=== PATIENT | female | born 1945 | race Caucasian/White ===

== ENCOUNTER → 2017-02-28 | Outpatient (CLI) | payer MEDICARE, OTHER | END | disposition home or self-care (01) | LOC: SURG 13:49 | PROVIDERS: ATTEND Anesthesiology Pain Medicine | DX: M25.551 Pain in right hip (principal); M25.552 Pain in left hip; I25.10 Atherosclerotic heart disease of native coronary artery without angina pectoris | CPT/HCPCS: 99204 ==

== ENCOUNTER 2020-02-23 09:26 | Emergency (ER) | payer MEDICARE, BC ==
[~2020-02-23] VITALS: Ht 162.6 cm; Wt 97.2 kg
--- NOTE | 2020-02-23 10:02 | PHYS DOC ---
Past History Past Medical History: CVA, Dementia Past Medical History Please defer to nursing documentation Past Surgical History Please defer to nursing documentation Adult General Chief Complaint Chief Complaint: HIP PAIN [facility] HPI Patient is a 74-year-old female who presents for bilateral hip pain. This is an acute on chronic problem. Patient arrives via EMS and limited history initially obtained via EMS, history was subsequently provided by who lives with patient. Patient has dementia and is at baseline status. Has chronic history of bilateral hip problems and has had MRIs performed on both, she deferred surgery approximately 5 years ago for continued medical management given risk vs benefits conversation. Patient deals with this hip pain daily but this has acutely worsened in the last 12 hours without any known inciting event or fall per her . Patient took unknown dose of Tylenol at 1 AM. She is typically able to ambulate and perform basic activities of daily living at home despite chronic right-sided deficits from previous CVA in 2011 but when she could not get up to sit at end of bed and start her day this morning around 8 AM, got concerned and called EMS for transport to our facility for evaluation. On arrival, patient complains of bilateral hip pain. Reports right side being more significant than left. Admits mild radiation into right flank. No fever, no recent COVID-19 contact, no chest pain, no shortness of breath, abdominal pain, nausea, vomit, diarrhea. She is unknown if she has had any changes in urination Review of Systems Review of Systems Fourteen body systems of review of systems have been reviewed. See HPI for pertinent positives and negative responses, other arredondo all other systems are negative, non-pertinent or non-contributory Allergies Allergies Allergies Coded Allergies Type Severity Reaction Last Updated Verified No Known Drug Allergies 02/23/20 No Physical Exam Physical Exam Constitutional: Well developed, well nourished, no acute distress, non-toxic appearance. At baseline mentation per HENT: Normocephalic, atraumatic, bilateral external ears normal, oropharynx moist, no oral exudates, nose normal. Eyes: PERRLA, EOMI, conjunctiva normal, no discharge. Neck: Normal range of motion, no tenderness, supple, no stridor. Cardiovascular: Heart rate regular, sinus rhythm, no murmurs rubs or gallops Lungs & Thorax: Bilateral breath sounds clear to auscultation Abdomen: Bowel sounds normal, distended, diffusely tender with guarding present, no rebound, no masses, no pulsatile masses. Positive heel strike. Pelvic girdle stable to palpation, patient has focal tenderness to palpation of right greater trochanter head Skin: Warm, dry, no erythema, no rash. Back: No tenderness, no CVA tenderness. Extremities: No tenderness, no cyanosis, no clubbing, ROM intact, no edema. Neurologic: Alert and oriented X 3, motor & sensory function at baseline for patient with residual right upper and lower extremity deficits secondary to prior CVA. Cranial nerves II through XII intact Psychologic: Affect normal, judgement normal, mood normal. Current Patient Data Vital Signs Vital Signs Date Time Temp Pulse Resp B/P (MAP) Pulse Ox O2 Delivery O2 Flow Rate FiO2 02/23/20 09:34 97.7 58 18 103/75 (84) 98 Room Air EKG EKG EKG ordered and interpreted by myself at 1040 hrs. as sinus rhythm at 59 bpm, unremarkable intervals, no axis deviation, no ischemic findings, no STEMI Radiology/Procedures Radiology/Procedures PROCEDURE: HIP BILATERAL WITH PELVIS HIP BILATERAL WITH PELVIS 02/23/2020 10:01 AM INDICATION: Bilateral hip pain COMPARISON: None available. TECHNIQUE: AP view the pelvis with a dedicated view of each hip are provided. FINDINGS/ IMPRESSION: 1. No acute fracture or dislocation involving the pelvic ring. Superior and inferior pubic rami are intact. Sacroiliac joints are well aligned. Sacral mickey appear intact. Iliac bones are normal in appearance. No suspicious osseous lesion is identified. Moderate to advanced lumbar spondylosis. 2. Advanced osteoarthrosis of the right hip with joint space narrowing, subcortical sclerosis and marginal osteophytosis. There is flattening of the femoral head with subcortical sclerosis which may be associated with osteonecrosis. There is either a inferior femoral osteophyte versus nondisplaced subcapital fracture (series 2, image 1). 3. There is moderate to advanced osteoarthrosis of the left hip with subcortical sclerosis, joint space narrowing and marginal osteophytosis. No acute fracture or dislocation of the left femur. Electronically signed by: Harper Dickson MD (02/23/2020 12:58 PM) [id number] PROCEDURE: CT ABD PELV W/ IV CONTRST ONLY EXAM: CT Abdomen and Pelvis with IV contrast INDICATION: Reason: RLQ pain / Spl. Instructions: / History: TECHNIQUE: Multi-detector row CT images were acquired from the lung bases through the abdomen and pelvis with the use of IV contrast. Sagittal and coronal images were acquired from the transaxial data. All CT scans performed at this facility utilize dose optimization techniques as appropriate to the exam, including the following: Automated exposure control and adjustment of the mA and/or KV according to patient size (this includes techniques or standardized protocols for targeted exams where dose is indication/reason for exam). IV CONTRAST: Administered ORAL CONTRAST: Not administered COMPARISON: None FINDINGS: LOWER CHEST: Unremarkable LIVER: Unremarkable BILIARY SYSTEM: Gallbladder is unremarkable. Bile ducts are not dilated. PANCREAS: Unremarkable SPLEEN: Unremarkable ADRENALS: Unremarkable KIDNEYS & URETERS: Unremarkable BLADDER: Moderately distended but otherwise unremarkable. REPRODUCTIVE ORGANS: Hysterectomy GASTROINTESTINAL: Rectal fecal distention to 6 cm transverse diameter is present. Otherwise the stomach, small bowel, and colon are unremarkable. The appendix is not well seen but there are no findings of acute appendicitis.. MESENTERY/PERITONEUM/RETROPERITONEUM: Unremarkable VASCULAR: Unremarkable LYMPH NODES: No adenopathy OSSEOUS & SOFT TISSUES: Bilateral hip degenerative changes. No acute or aggressive osseous lesions. IMPRESSION: Findings compatible with constipation. Otherwise no acute findings in the abdomen or pelvis on contrast enhanced CT. Electronically signed by: Dayton Mancera MD (02/23/2020 1:08 PM) [id number] Heart Score Risk Factors: Risk Factors: DM, Current or recent (<one month) smoker, HTN, HLP, family history of CAD, obesity. Risk Scores: Risk Factors: DM, Current or recent (<one month) smoker, HTN, HLP, family history of CAD, obesity. Course & Med Decision Making Course & Med Decision Making Pertinent Labs and Imaging studies reviewed. (See chart for details) Given history, exam, and workup, low suspicion for ICH, skull fx, spine fx or other acute spinal syndrome, PTX, pulmonary contusion, cardiac contusion, aortic/vertebral dissection, significant hemorrhage, extremity fracture. Discussed most likely diagnosis of constipation. Patient has known bilateral hip problems. Patient lives at home with , I discussed case with him and their son at length. They report they are able to care for patient at home independently They did report worsening mobility in the past few months without any known falls or inciting events, this is likely continued degeneration of bilateral hips. I advised them to follow-up with PCP as soon as possible after this ER visit to discuss possibilities of home health versus SNF versus assisted living etc. I educated patient, , and son on supportive care practices on how to best treat patient's constipation. She has been going daily but has had decreased p.o. fluid intake and decreased fiber. I encouraged her to increase both of these in addition to adding MiraLAX supplement daily Strict return precautions discussed with good understanding by all present, patient demonstrated baseline mobility function for myself, staff members and family present prior to discharge, all questions and concerns addressed prior to ER departure in stable condition Kimberley Disclaimer Kimberley Disclaimer This electronic medical record was generated, in whole or in part, using a voice recognition dictation system. Departure Departure: Impression: Primary Impression: Constipation Additional Impression: Chronic hip pain, bilateral Disposition: 01 DC HOME SELF CARE/HOMELESS Condition: STABLE Referrals: KING DEXTER (PCP) Patient Instructions: Constipation, Adult, Hip Pain Additional Instructions: You have been evaluated in the Emergency Department today for abdominal pain. Your evaluation was not suggestive of any emergent condition requiring medical intervention at this time. However, some abdominal problems make take more time to appear. Therefore, it is important for you to watch for any new symptoms or worsening of your current condition. As discussed, most likely diagnosis after comprehensive evaluation was constipation in the setting of chronic bilateral hip pain. I discussed potential need for admission and rehabilitation with consideration for [facility]/assisted living/home health set up I discussed with you extensively that this can also be performed by your outpatient primary care physician. Your father and son are confident in their abilities to provide care for you in the short-term until you can follow-up with your PCP in upcoming 1 to 7 days Return to the Emergency Department if you experience worsening pain, persistent fevers greater than 100.4, recurrent vomiting, blood in vomit, blood in stool, dark tarry stool, chest pain, difficulty breathing, or any other concerning symptoms. Scripts Polyethylene Glycol 3350 (MIRALAX) 119 Gm Powder 17 GM PO DAILY PRN for CONSTIPATION, #527 GM 0 Refills dissolve in water Prov: KESHAV MÁRQUEZ DO 02/23/20 Problem Qualifiers KESHAV MÁRQUEZ DO Feb 23, 2020 10:02
[2020-02-23] MEDS ORDERED: IOHEXOL 300 MG/ML 75 ML VIAL. IV ONE (10:30)
--- NOTE | 2020-02-23 10:46 | EKG ---
[address] [address] Test Date: 2020-02-23 Test Time: 10:39:28 Pat Name: PIERRE BANKS Department: Room: Gender: F Comfort Filler: ROSEANN : 1945 Requested By: KESHAV MÁRQUEZ Order Number: [id number] Reading MD: Measurements Intervals [place] Rate: 59 P: 230 [place]: 192 QRS: 57 QRSD: 72 T: 61 QT: 430 QTc: 430 Interpretive Statements SINUS RHYTHM QRS(T) CONTOUR ABNORMALITY CONSISTENT WITH ANTEROSEPTAL INFARCT PROBABLY OLD ABNORMAL ECG RI6.02 No previous ECG available for comparison
[2020-02-23 10:51] LABS: BASO % 1 % (0-3); EOS # 0.1 x10^3/uL (0.0-0.7); EOS % 2 % (0-3); HEMATOCRIT 42.8 % (36.0-47.0); HEMOGLOBIN 14.4 g/dL (12.0-15.5); LYMPH % 38 % (24-48); MEAN CORPUSCULAR HEMOGLOBIN 31 pg (25-35); MEAN CORPUSCULAR HGB CONC 34 g/dL (31-37); MEAN CORPUSCULAR VOLUME 91 fL (79-100); MONO # 0.4 x10^3/uL (0.0-1.1); MONO % 8 % (0-9); NEUT # 2.7 x10^3uL (1.8-7.7); NEUT % 51 % (31-73); PLATELET COUNT 203 x10^3/uL (140-400); RED BLOOD COUNT 4.68 x10^6/uL (3.50-5.40); RED CELL DISTRIBUTION WIDTH 13.3 % (11.5-14.5); WHITE BLOOD COUNT 5.2 x10^3/uL (4.0-11.0)
[2020-02-23 10:59] LABS: CALCIUM 9.1 mg/dL (8.5-10.1); CREATININE 0.9 mg/dL (0.6-1.0)
[2020-02-23 11:00] VITALS: BP 153/97
[2020-02-23 11:05] LABS: ALBUMIN 3.5 g/dL (3.4-5.0); ALBUMIN/GLOBULIN RATIO 1.2 (1.0-1.7); TOTAL BILIRUBIN 0.5 mg/dL (0.2-1.0); TOTAL PROTEIN 6.4 g/dL (6.4-8.2)
[2020-02-23 11:11] LABS: LIPASE 92 U/L (73-393)
--- NOTE | 2020-02-23 13:01 | RAD ---
HIP BILATERAL WITH PELVIS 02/23/2020 10:01 AM INDICATION: Bilateral hip pain COMPARISON: None available. TECHNIQUE: AP view the pelvis with a dedicated view of each hip are provided. FINDINGS/ IMPRESSION: 1. No acute fracture or dislocation involving the pelvic ring. Superior and inferior pubic rami are intact. Sacroiliac joints are well aligned. Sacral mickey appear intact. Iliac bones are normal in appearance. No suspicious osseous lesion is identified. Moderate to advanced lumbar spondylosis. 2. Advanced osteoarthrosis of the right hip with joint space narrowing, subcortical sclerosis and marginal osteophytosis. There is flattening of the femoral head with subcortical sclerosis which may be associated with osteonecrosis. There is either a inferior femoral osteophyte versus nondisplaced subcapital fracture (series 2, image 1). 3. There is moderate to advanced osteoarthrosis of the left hip with subcortical sclerosis, joint space narrowing and marginal osteophytosis. No acute fracture or dislocation of the left femur. Electronically signed by: Harper Dickson MD (02/23/2020 12:58 PM) [id number]
--- NOTE | 2020-02-23 13:11 | RAD ---
EXAM: CT Abdomen and Pelvis with IV contrast INDICATION: Reason: RLQ pain / Spl. Instructions: / History: TECHNIQUE: Multi-detector row CT images were acquired from the lung bases through the abdomen and pelvis with the use of IV contrast. Sagittal and coronal images were acquired from the transaxial data. All CT scans performed at this facility utilize dose optimization techniques as appropriate to the exam, including the following: Automated exposure control and adjustment of the mA and/or KV according to patient size (this includes techniques or standardized protocols for targeted exams where dose is indication/reason for exam). IV CONTRAST: Administered ORAL CONTRAST: Not administered COMPARISON: None FINDINGS: LOWER CHEST: Unremarkable LIVER: Unremarkable BILIARY SYSTEM: Gallbladder is unremarkable. Bile ducts are not dilated. PANCREAS: Unremarkable SPLEEN: Unremarkable ADRENALS: Unremarkable KIDNEYS & URETERS: Unremarkable BLADDER: Moderately distended but otherwise unremarkable. REPRODUCTIVE ORGANS: Hysterectomy GASTROINTESTINAL: Rectal fecal distention to 6 cm transverse diameter is present. Otherwise the stomach, small bowel, and colon are unremarkable. The appendix is not well seen but there are no findings of acute appendicitis.. MESENTERY/PERITONEUM/RETROPERITONEUM: Unremarkable VASCULAR: Unremarkable LYMPH NODES: No adenopathy OSSEOUS & SOFT TISSUES: Bilateral hip degenerative changes. No acute or aggressive osseous lesions. IMPRESSION: Findings compatible with constipation. Otherwise no acute findings in the abdomen or pelvis on contrast enhanced CT. Electronically signed by: Dayton Mancera MD (02/23/2020 1:08 PM) [id number]
[2020-02-23 13:48] LABS: CLARITY,URINE CLEAR; COLOR,URINE YELLOW
[2020-02-23 13:49] LABS: BACTERIA,URINE 0 /HPF (0-FEW); BILIRUBIN,URINE NEG (NEG); GLUCOSE,URINE NEG (NEG); NITRITE,URINE NEG (NEG); RBC,URINE RARE /HPF (0-2); UROBILINOGEN,URINE 0.2 mg/dL (0.2 mg/dL); WBC,URINE 0 /HPF (0-4)
[2020-02-23] MEDS ORDERED: POLY119P4 PO (14:38)
== END 2020-02-23 15:00 | disposition home or self-care (01) ==
LOC: ER 09:26
DX: G89.29 Other chronic pain (principal); M25.552 Pain in left hip; M25.551 Pain in right hip; K59.00 Constipation, unspecified; F03.90 Unspecified dementia, unspecified severity, without behavioral disturbance, psychotic disturbance, mood disturbance, and anxiety; Z86.73 Personal history of transient ischemic attack (TIA), and cerebral infarction without residual deficits
CPT/HCPCS: 36415; 73521; 74177; 80053; 81001; 83690; 83880; 84484; 85025; 93005; 99285; Q9967